=== PATIENT | female | born 1980 | race Caucasian/White ===

== ENCOUNTER 2019-03-30 16:25 | Emergency (ER) | payer OTHER ==
[2019-03-30 17:16] VITALS: BP 116/75
[2019-03-30 17:34] LABS: Influenza A Molecular Negative (Negative); Influenza B Molecular Negative (Negative)
--- NOTE | 2019-03-30 17:43 | UC ---
Respiratory Complaint HPI - HPI Summary HPI Summary: 38-year-old woman comes in with a chief complaint of 10 days of upper respiratory tract infection symptoms. She's had rhinorrhea sinus pressure cough chest congestion wheezing fatigue. She's been using her albuterol inhaler that does help some with the wheezing. - History of Current Complaint Chief Complaint: UCGeneralIllness Stated Complaint: CONGESTION, EAR COMPLAINT Time Seen by Provider: 03/30/19 17:27 Pain Intensity: 6 - Allergies/Home Medications Allergies/Adverse Reactions: Allergies Allergy/AdvReac Type Severity Reaction Status Date / Time amoxicillin [From Augmentin] Allergy GI Upset Verified 03/30/19 17:07 ciprofloxacin Allergy Anaphylatic Verified 03/30/19 17:07 Shock clavulanic acid Allergy GI Upset Verified 03/30/19 17:07 [From Augmentin] ondansetron [From Zofran] Allergy Anaphylatic Verified 03/30/19 17:07 Shock Penicillins Allergy Anaphylatic Verified 03/30/19 17:07 Shock Home Medications: Home Medications Albuterol HFA INHALER* [Ventolin HFA Inhaler*] 2 puff INH Q4H PRN 03/30/19 [ History Confirmed 03/30/19] Aspirin/Acetaminophen/Caffeine [Excedrin Migraine Caplet] 2 tab PO ONCE [History Confirmed 03/30/19] Cetirizine* [ZyrTEC 10 MG TAB*] 1 tab PO DAILY 03/30/19 [History Confirmed 03/30] Levothyroxine TAB* [Synthroid TAB*] 50 mcg PO QAM 03/30/19 [History Confirmed ] Methocarbamol TAB* [Robaxin 500 MG TAB*] 1 tab PO QPM 03/30/19 [History Confirmed 03/30/19] estradioL [Estradiol] 2 mg PO DAILY 03/30/19 [History Confirmed 03/30/19] guaiFENesin [Mucinex] 1 dose PO ONCE 03/30/19 [History Confirmed 03/30/19] traMADol TAB* [Ultram*] 1 tab PO BID 03/30/19 [History Confirmed 03/30/19] PMH/Surg Hx/FS Hx/Imm Hx Previously Healthy: Yes Endocrine History: Hypothyroidism Respiratory History: Asthma - Surgical History Surgical History: Yes Surgery Procedure, Year, and Place: hysterectomy. L shoulder. ovarian cyst removal. exploratory lapartomy - dx'd with endometriosis. cholecystectomy. bilateral oophrectomy - Family History Known Family History: Positive: Non-Contributory - Social History Alcohol Use: None Substance Use Type: None Smoking Status (MU): Heavy Every Day Tobacco Smoker Amount Used/How Often: 1/2 ppd Review of Systems All Other Systems Reviewed And Are Negative: Yes Constitutional: Positive: Other - SEE HPI Skin: Positive: Negative Eyes: Positive: Negative ENT: Positive: Sore Throat, Nasal Discharge, Sinus Congestion Respiratory: Positive: Cough, Other - SEE HPI Cardiovascular: Positive: Negative Gastrointestinal: Positive: Negative Motor: Positive: Negative Neurovascular: Positive: Negative Musculoskeletal: Positive: Negative Neurological/Mental Status: Positive: Negative Psychological: Positive: Negative Is Patient Immunocompromised?: No Physical Exam Triage Information Reviewed: Yes Appearance: No Pain Distress, Well-Nourished, Ill-Appearing - MILD Vital Signs: Initial Vital Signs Temp 97.5 F 03/30/19 17:09 Pulse 93 03/30/19 17:09 Resp 15 03/30/19 17:09 BP 116/75 03/30/19 17:09 Pulse Ox 98 03/30/19 17:09 Vital Signs Reviewed: Yes Eye Exam: Normal Eyes: Positive: Conjunctiva Clear ENT: Positive: Pharyngeal erythema, Nasal congestion, Nasal drainage, TMs normal Neck: Positive: Supple, Nontender Respiratory: Positive: No respiratory distress, Rhonchi Cardiovascular: Positive: RRR Musculoskeletal: Positive: Strength Intact, ROM Intact Neurological: Positive: Alert, Muscle Tone Normal Psychological: Positive: Normal Response To Family, Age Appropriate Behavior Skin Exam: Normal Respiratory Course/Dx - Differential Dx/Diagnosis Provider Diagnosis: Bronchitis, Asthma Discharge ED - Sign-Out/Discharge Documenting (check all that apply): Patient Departure All imaging exams completed and their final reports reviewed: No Studies - Discharge Plan Condition: Stable Disposition: HOME Prescriptions: Azithromyxin NATASHA (NF) [Z-Natasha (Zithromax) 250 mg tabs #6] 2 tab PO .TODAY, THEN 1 DAILY #6 tab guaiFENesin/CODIENE 100mg/10mg [Robitussin AC 100Mg/10Mg in 5 ml] 10 ml PO Q4H PRN #180 ml MDD 60ML PRN Reason: Cough methylPREDNISolone [Medrol Dosepak 4 MG*] 0 mg PO .SEE NATASHA INSTRUCTION #1 natasha Patient Education Materials: Asthma (ED), Acute Bronchitis (ED) Forms: *Work Release Referrals: Selam Regalado PA [Primary Care Provider] - Additional Instructions: FOLLOW UP WITH YOUR DOCTOR IF NOT COMPLETELY IMPROVED. GET REEVALUATED SOONER IF NOT IMPROVED OR WORSE OR ANY QUESTIONS OR CONCERNS. - Billing Disposition and Condition Condition: STABLE Disposition: Home
== END 2019-03-30 17:48 | disposition home or self-care (01) ==
LOC: UCCORT 16:25
DX: J45.909 Unspecified asthma, uncomplicated (principal); E03.9 Hypothyroidism, unspecified; J02.9 Acute pharyngitis, unspecified; F17.210 Nicotine dependence, cigarettes, uncomplicated; Z79.82 Long term (current) use of aspirin; Z79.890 Hormone replacement therapy; Z88.0 Allergy status to penicillin; Z88.1 Allergy status to other antibiotic agents; Z88.8 Allergy status to other drugs, medicaments and biological substances
CPT/HCPCS: 99212; G0463